=== PATIENT | female | born 1960 | race Caucasian/White ===

== ENCOUNTER 2017-03-21 17:13 | Emergency (ER) | payer BC ==
[~2017-03-21] VITALS: Ht 157.5 cm; Wt 83.9 kg
[~2017-03-21 17:13] MED LIST: SYNTHROID0.05 MG PO
[2017-03-21 17:42] VITALS: BP 111/74
--- NOTE | 2017-03-21 19:45 | NUR ---
PT TAKEN TO BED 3
--- NOTE | 2017-03-21 20:19 | NUR ---
Dr. Cano evaluating patient at bedside.
[2017-03-21] MEDS ORDERED: HYDROcodone/APAP 5/325 MG 1 TAB TAB PO ONE (20:35)
[2017-03-21] MEDS ORDERED: ASPIRIN 325 MG TAB PO ONE (20:35)
--- NOTE | 2017-03-21 21:00 | NUR ---
56Y/F PT PRESENTS TO ED WITH C/O FRONTAL AND LEFT PARIETAL HEADACHE X YESTERDAY. ADDS DIZZINESS WHEN SHE SQUATS DOWN---DENIES N/V- FULL CLEAR SPEECH, NO FACIAL ASYMMETRY NOTED, EQUAL BUE [employer]ING [employer]/PUSHES. STATES UNPROVOKED LEFT SIDED ANTERIOR CHEST PRESSURE TYPE PAIN RADIATING TO LEFT RIBS X YESTERDAY--DENIES INJURY, WAS SEEN [facility] TODAY---DISCHARGED AND INSTRUCTED TO GO TO ER FOR BLOOD WORKHX---HYPERLIPIDEMIA, HYPOTHYROID. RX--- SYNTHROID, PRAVASTATIN. AAOX4, AMBULATORY WITH STEADY GAIT. RESPIRATIONS ROOM AIR, EVEN AND UNLABORED. C/O HEADACHE WITH CP 5/10. VSS, NO S/SX OF DISTRESS AT THIS TIME. ER MD MADE AWARE OF PT. STATUS.
--- NOTE | 2017-03-21 23:00 | NUR ---
Patient appears to be resting comfortably in bed. Vital Signs within normal limits. Respirations even and unlabored.
--- NOTE | 2017-03-22 00:10 | NUR ---
Patient discharged with v/s stable. Written and verbal after care instructions given and explained. Patient alert, oriented and verbalized understanding of instructions. Ambulatory with steady gait. All questions addressed prior to discharge. ID band removed. Patient advised to follow up with PMD. Rx of MOTRIN 600 MG given. Patient educated on indication of medication including possible reaction and side effects. Opportunity to ask questions provided and answered.
[2017-03-22 00:17] VITALS: BP 122/75
== END 2017-03-22 00:10 | disposition home or self-care (01) ==
LOC: MED 17:13
DX: R07.89 Other chest pain (principal); R51 Headache; E78.00 Pure hypercholesterolemia, unspecified

== ENCOUNTER 2020-05-16 15:39 | Emergency (ER) | payer BC, SELFPAY ==
[~2020-05-16] VITALS: Ht 162.6 cm; Wt 81.6 kg
[~2020-05-16 15:39] MED LIST changes: +SYN.05 PO; -SYNTHROID0.05 MG PO
[2020-05-16 16:52] VITALS: BP 136/69
[2020-05-16 18:38] VITALS: BP 136/69
--- NOTE | 2020-05-16 18:39 | NUR ---
c/o fever and sorethroat with a cough
--- NOTE | 2020-05-16 18:39 | NUR ---
Patient discharged with v/s stable. Written and verbal after care instructions given and explained. Patient alert, oriented and verbalized understanding of instructions. Ambulatory with steady gait. All questions addressed prior to discharge. ID band removed. Patient advised to follow up with PMD. Rx of promethazine/ibuprofen given. Patient educated on indication of medication including possible reaction and side effects. Opportunity to ask questions provided and answered.
--- NOTE | 2020-05-16 18:39 | NUR ---
covid-19 swab collected---
== END 2020-05-16 18:39 | disposition home or self-care (01) ==
LOC: EEVIPCON 15:39 → MED 15:39
DX: B34.9 Viral infection, unspecified (principal); Z20.828 Contact with and (suspected) exposure to other viral communicable diseases; J02.9 Acute pharyngitis, unspecified; M79.10 Myalgia, unspecified site; I10 Essential (primary) hypertension; E07.9 Disorder of thyroid, unspecified; Z79.899 Other long term (current) drug therapy
CPT/HCPCS: 81002; 99283; U0003